=== PATIENT | male | born 1985 | race Caucasian/White ===

== ENCOUNTER 2019-09-06 10:44 | Outpatient (CLI) | payer BC ==
--- NOTE | 2019-09-06 11:17 | RAD ---
RIGHT FOOT THREE VIEWS: HISTORY: Right foot pain. FINDINGS/IMPRESSION: No fracture, dislocation or other significant acute osseous abnormality. POS: [facility]
== END 2019-09-06 10:45 | disposition home or self-care (01) ==
LOC: RAD 10:44
PROVIDERS: ATTEND Nurse Practitioner Family
DX: M79.671 Pain in right foot (principal)
CPT/HCPCS: 84550; 85025